=== PATIENT | female | born 1980 | race Caucasian/White ===

== ENCOUNTER 2018-02-22 20:24 | Emergency (ER) | payer OTHER ==
[~2018-02-22] VITALS: Ht 170.2 cm; Wt 68.5 kg
[2018-02-22] MEDS ORDERED: MORPHINE SULFATE 2 MG/ML SYR IM STA (20:42)
[2018-02-22] MEDS ORDERED: CLONIDINE HCL 0.2 MG TAB PO ONE (20:45)
[2018-02-22 21:45] VITALS: BP 182/108
== END 2018-02-22 21:45 | disposition home or self-care (01) ==
LOC: FSED 20:24
DX: L02.01 Cutaneous abscess of face (principal); H60.11 Cellulitis of right external ear; I10 Essential (primary) hypertension; F17.200 Nicotine dependence, unspecified, uncomplicated
CPT/HCPCS: 10060; 99283; J2270

== ENCOUNTER 2018-02-24 16:38 | Emergency (ER) | payer OTHER ==
[~2018-02-24] VITALS: Ht 170.2 cm; Wt 68.5 kg
[2018-02-24] MEDS ORDERED: MORPHINE SULFATE 2 MG/ML SYR IV STA (16:55)
[2018-02-24] MEDS ORDERED: CEFTRIAXONE SOD 1 GM VIAL IM ONE (17:00)
[2018-02-24] MEDS ORDERED: CLONIDINE HCL 0.1 MG TAB PO ONE (17:00)
== END 2018-02-24 17:30 | disposition home or self-care (01) ==
LOC: FSED 16:38
DX: L02.01 Cutaneous abscess of face (principal); L03.211 Cellulitis of face; I10 Essential (primary) hypertension; F17.200 Nicotine dependence, unspecified, uncomplicated
CPT/HCPCS: 10060; 99284; J0696; J2270